=== PATIENT | female | born 1950 | race Caucasian/White ===

== ENCOUNTER → 2017-02-07 | Outpatient (CLI) | payer BC ==
[~2017-02-07] MED LIST: ASPI-232 PO; ATEN-173 PO; CITA20TA4 PO; CLR10 PO; LISI-725 PO; LORA-741 PO; LSX20 PO; MAGN400T6 PO; OMEP40CA PO; RANI150T3 PO; SIMV20TA5 PO; TAMO20TA5 PO
[2017-02-07 12:24] LABS: BASO % 0.2 %; BASO ABS # 0.01 K/uL (0-0.2); COMPLETE YES; EOS % 1.3 %; HEMATOCRIT 38.6 % (37-47); IG% 0.2 %; LYMPH % 35.1 %; LYMPH ABS # 1.91 K/uL (1.2-3.4); MEAN CORPUSCULAR HEMOGLOBIN 32.3 pg (25-34); MEAN CORPUSCULAR HGB CONC 32.6 g/dl (32-36); MEAN PLATELET VOLUME 10.5 fL (7.4-10.4); MONO % 8.8 %; NEUT % 54.4 %; PLATELET COUNT 153 K/uL (130-400); WHITE BLOOD COUNT 5.44 K/uL (4.8-10.8)
[2017-02-07 12:52] LABS: ALT/SGPT 30 U/L (12-78); BLOOD UREA NITROGEN 17 mg/dl (7-18); BUN/CREATININE RATIO 23.5 (10-20); CARBON DIOXIDE 26 mmol/L (21-32); CHLORIDE 108 mmol/L (98-107); CHOLESTEROL 224 mg/dl (0-200); CREATININE 0.72 mg/dl (0.60-1.20); GLUCOSE 100 mg/dl (70-99); POTASSIUM 4.1 mmol/L (3.5-5.1); SODIUM 141 mmol/L (136-145)
[2017-02-07 13:02] LABS: ALKALINE PHOSPHATASE 71 U/L (45-117); AST/SGOT 24 U/L (15-37); CHOLESTEROL/HDL RATIO 3.2; HDL CHOLESTEROL 70 mg/dl; LDL CHOLESTEROL CALCULATED 140 mg/dl; TRIGLYCERIDES 72 mg/dl (0-150); VERY LOW DENSITY LIPOPROT CALC 14 mg/dl
== END | disposition home or self-care (01) ==
LOC: C.LAB 10:46
DX: I10 Essential (primary) hypertension (principal); E78.00 Pure hypercholesterolemia, unspecified; R73.01 Impaired fasting glucose

== ENCOUNTER → 2017-05-16 | Outpatient (CLI) | payer BC, OTHER ==
[2017-05-16 14:40] VITALS: BP 146/69; PULSE 70; TEMP 37; O2SAT 96
--- NOTE | 2017-05-16 17:23 | Radiation Oncology Follow-Up ---
Radiation Oncology Follow-Up Date of Visit May 16, 2017. Reason For Visit Annual follow-up Radiation Completion Date 03/01/12 Diagnosis (1) Breast cancer Status: Resolved Onset Date: 05/19/2011 Histology Subtype: ductal Stage: ll (A) Permanent Comment: Abnormal left breast mammogram Status post biopsy revealing infiltrating ductal carcinoma Estrogen receptor positive, progesterone receptor negative, HER-2/karl negative Status post partial mastectomy and sentinel lymph node biopsy followed by axillary dissection Stage pT1c pN1 M0 Status post 5 cycles of Taxotere, Adriamycin and Cytoxan Status post completion of radiation therapy to left breast and chest wall with boost completed 03/01/2012 received 6120 cGy Last Edited By: Mary Jo Delgado on May 11, 2016 13:34 Interim History She has noticed no changes in her left breast. She's noted no masses or tenderness no change of the axilla. She's had no swelling of her arm. She is up-to-date on mammography. She has been having a pain in her right breast. This can be sharp at times. The pain is located in the lower inner portion of the breast. She has noted no masses. She has noted that wearing a bra increases the discomfort. She has had no trauma. She is recalled no injury to the area. She's noticed no redness or ecchymosis. She's noticed no nipple discharge. Allergies Coded Allergies: Adhesives (Verified Allergy, Severe, ETHICON SUTURES edema , skin split open drained, 07/28/15) Penicillins (Verified Allergy, Unknown, `, 07/28/15) Home Medications Scheduled Aspirin (Aspir-81), 1 TAB PO QAM Atenolol (Tenormin), 25 MG PO QAM Citalopram Hydrobromide (Citalopram Hydrobromide), 20 MG PO QAM Lisinopril (Zestril), 20 MG PO QAM Loratadine (Claritin), 10 MG PO QAM Lorazepam (Ativan), 0.5 MG PO PRN Magnesium Oxide (Mag-Ox), 400 MG PO QAM Omeprazole (Prilosec), 40 MG PO QAM Ranitidine Hcl (Zantac), 150 MG PO prn Simvastatin (Zocor), 20 MG PO QPM Scheduled PRN Furosemide (Lasix *), 20 MG PO DAILY PRN for SWELLING Review of Systems Gastrointestinal: Symptoms: WNL Oral: Symptoms: No Problems Respiratory: Symptoms: WNL Urinary: Symptoms: WNL Skin: Symptoms: No Problems Breast: Right Upper Arm Measurement: 42.2 Right Mid Arm Measurement: 29.5 Right Wrist Measurement: 18.4 Left Upper Arm Measurement: 42.0 Left Mid Arm Measurement: 31.1 Left Wrist Measurement: 19.6 Arm Dominence: Right Physical Exam Vital Signs Date Time Temp Pulse Resp B/P (MAP) Pulse Ox O2 Delivery O2 Flow Rate FiO2 05/16/17 14:40 37.0 70 16 146/69 96 Fatigue: None General Appearance: no apparent distress Eyes: normal inspection, EOMI ENT: normal ENT inspection, hearing grossly normal Neck: no adenopathy, thyroid normal (to) Respiratory/Chest: lungs clear, no respiratory distress, no accessory muscle use Breast: Breast examination reveals well-healed incisions of the left breast. There are no masses or tenderness and no axillary adenopathy. There are no nipple changes. Using the [place] score cosmesis she has a excellent outcome. The right breast showed no masses. There is no erythema or edema. There is no ecchymosis. She has no skin retractions or nipple changes. She does have tenderness in the right lower inner quadrant of the breast. Cardiovascular: regular rate, rhythm, no gallop, no murmur Extremities: no pedal edema Neurologic/Psychiatric: no motor/sensory deficits, alert, normal mood/affect Skin: warm/dry Additional Studies Patient: YAKOV MOSLEY [facility] Rec: [id number] Address1: [address] [place] [address] Address2: [facility] ID: [id number] Date: 1950 Sex: F Ref Phy: Att Phy: Andrea Hunt M.D. Kisha Phy: Chris Richardson M.D. Inter Phy: Anastasia Okeefe MD [facility] Zip: [place] [address] SC: [id number] Report #: [id number] Assistant Business Manager: REYES Diagnosis: ASYMPTOMATIC/HX BREAST CA Service Date: 08/10/16 MNE: [id number] Ordering Dr: Mary Jo Delgado PA-C CC: Mary Jo Delgado PA-C CONF: DICTATED BY: Anastasia Okeefe .MD MAMMOGRAPHY REPORT THIS REPORT HAS BEEN AMENDED. BILATERAL DIGITAL SCREENING MAMMOGRAM TOMOSYNTHESIS WITH CAD: 08/10/2016 CLINICAL HISTORY: Asymptomatic. Personal history of breast cancer. Comparison is made to exams dated: 08/09/2015 mammogram, 05/07/2014 mammogram, and 11/07/2013 mammogram - [facility]. FINDINGS: There are scattered areas of fibroglandular density in both breasts. Breast tomosynthesis, in addition to standard 2D mammography was performed. Current study was also evaluated with a Computer Aided Detection (CAD) system. There are stable post lumpectomy and radiations changes in the left breast. No suspicious mass, architectural distortion or cluster of microcalcifications is seen. There has been no significant interval change. IMPRESSION: ACR BI-RADS CATEGORY 2: BENIGN There is no mammographic evidence of malignancy. A 1 year screening mammogram is recommended. The patient will receive written notification of the results. Approximately 10% of breast cancers are not detected with mammography. A negative mammographic report should not delay biopsy if a clinically suggestive mass is present. Anastasia Okeefe MD mb/penrad:08/10/2016 13:03:02 Gym Supervisor: Martha ALLEN(Candace)(M)(BD), [facility] letter sent: Normal / BI-RADS Code: ACR BI-RADS Category 2: Benign AMENDMENT: 08/28/2016 Anastasia Okeefe MD Digital tomosynthesis was also performed and interpreted for this study. Amended BI-RADS: ACR BI-RADS Category 2: Benign Dictated by: Anastasia Okeefe MD Signed by: Anastasia Okeefe MD Assessment & Plan Plan: Due to the discomfort and tenderness on examination and ultrasound and diagnostic mammogram were scheduled. She'll continue regular follow-up with Dr. Richardson and Dr. Carmichael. I've asked her to take ibuprofen 200 mg 2 pills twice a day for one week. She is to refrain from caffeine. We asked to return to our office in one month for reevaluation. She'll be notified as to results of her testing. She may call if she has any questions or concerns in the interim. Total Time In Follow-Up I spent 25 minutes speaking to the patient performing examination. I spent 15 minutes reviewing information in completing this note. Copy To Chris Richardson M.D.; Segundo Carmichael M.D. Problem Qualifiers (1) Breast cancer: Breast location: upper outer quadrant of breast Estrogen receptor status: positive Patient sex: female Laterality: left Qualified Codes: C50.412 - Malignant neoplasm of upper-outer quadrant of left female breast; Z17.0 - Estrogen receptor positive status [ER+]
== END | disposition home or self-care (01) ==
LOC: C.ONC 14:37
PROVIDERS: ATTEND Physician Assistant Medical
DX: Z08 Encounter for follow-up examination after completed treatment for malignant neoplasm (principal); Z92.3 Personal history of irradiation; Z85.3 Personal history of malignant neoplasm of breast

== ENCOUNTER → 2017-05-30 | Outpatient (CLI) | payer BC ==
[~2017-05-30] MED LIST changes: -TAMO20TA5 PO
--- NOTE | 2017-05-30 12:44 | MAMMOGRAPHY REPORT ---
UNILATERAL RIGHT DIGITAL DIAGNOSTIC MAMMOGRAM TOMOSYNTHESIS WITH CAD AND TARGETED RIGHT ULTRASOUND: CLINICAL HISTORY: 66-year-old woman with a personal history of left breast cancer status post breast conservation therapy presents with one and half months of focal pain in the 4:00 to 5:00 right breast . No palpable mass, skin erythema or nipple discharge. TECHNIQUE: Right breast tomosynthesis in addition to standard 2D mammography was performed. Current s ziyad was also evaluated with a Computer Aided Detection (CAD) system. COMPARISON: Comparison is made to exams dated: 08/10/2016 mammogram, 08/09/2015 mammogram, 11/07/2013 ma mmogram, 05/02/2011 mammogram - [facility], 02/28/2008, and 03/01/2007. BREAST COMPOSITION: There are scattered areas of fibroglandular density in the right breast. FINDINGS: A square shaped pain marker overlies the 5:00 posterior right breast. The right breast par enchyma pattern is similar to prior mammograms. There are stable benign-appearing calcifications sca ttered in the breasts. No new suspicious mass, architectural distortion or cluster of suspicious ladi rocalcifications is seen. Targeted ultrasound was performed in the inferior right breast in the area of pain pointed out by the patient (4:00 to 5:00 right breast approximately 8 cm from the nipple near the inframammary fold. S onographically normal tissue is identified without a discrete solid or cystic mass. IMPRESSION: ACR BI-RADS CATEGORY 2: BENIGN, TARGETED ULTRASOUND ACR BI-RADS CATEGORY 2: BENIGN 1. There is no new suspicious mammographic or sonographic abnormality in the 4:00 through 6:00 axes of the right breast to explain the focal pain described by the patient. Therefore, clinical follow-u p is recommended. 2. Overall, stable mammographic appearance of the right breast, without evidence of malignancy. Rec ommend follow-up at time of next bilateral screening mammogram which is due in August 2017. Approximately 10% of breast cancers are not detected with mammography. A negative mammographic report should not delay biopsy if a clinically suggestive mass is present. Lizeth Hodgson M.D. ay/:05/30/2017 10:16:11 District Adviser: Catrina ALLEN(Candace)(Sadi), [facility] letter sent: Normal 1/2 BI-RADS Code: ACR BI-RADS Category 2: Benign Ultrasound BI-RADS: ACR BI-RADS Category 2: Benign
== END | disposition home or self-care (01) ==
LOC: C.MAMM 09:36
PROVIDERS: ATTEND Physician Assistant Medical
DX: N64.4 Mastodynia (principal); Z85.3 Personal history of malignant neoplasm of breast

== ENCOUNTER → 2017-06-13 | Outpatient (CLI) | payer BC ==
[2017-06-13 13:18] VITALS: BP 148/83; PULSE 100; TEMP 36.9; O2SAT 96
--- NOTE | 2017-06-13 13:43 | Radiation Oncology Follow-Up ---
Radiation Oncology Follow-Up Date of Visit Jun 13, 2017. Reason For Visit Recheck post annual visit due to breast discomfort Radiation Completion Date 03/01/12 Diagnosis (1) Breast cancer Status: Resolved Onset Date: 05/19/2011 Stage: ll (A) Permanent Comment: Abnormal left breast mammogram Status post biopsy revealing infiltrating ductal carcinoma Estrogen receptor positive, progesterone receptor negative, HER-2/karl negative Status post partial mastectomy and sentinel lymph node biopsy followed by axillary dissection Stage pT1c pN1 M0 Status post 5 cycles of Taxotere, Adriamycin and Cytoxan Status post completion of radiation therapy to left breast and chest wall with boost completed 03/01/2012 received 6120 cGy Last Edited By: Mary Jo Delgado on May 11, 2016 13:34 Interim History She is being seen in follow-up due to discomfort that was discussed at her last visit. She was seen on 05/16/2017. At that time she was having pain of her right breast in the lower inner quadrant. She had noted no masses. She was up- to-date on mammography. She had noticed no redness or ecchymosis. There were no nipple changes. There are no changes of the skin. On examination there was tenderness to palpation in the lower inner quadrant of the breast. The mammogram was ordered as well as an ultrasound for evaluation. There were no suspicious findings. Recommendation was to continue with regular follow-up mammography. This would be due in August 2017. She had been instructed to use ibuprofen 2 pills twice daily for one week. With the initiation of medication the discomfort steadily improved and resolved. She has been off the ibuprofen for 3 days and there is been no recurrence of pain. She feels that this may have occurred due to strain while cleaning. Allergies Coded Allergies: Adhesives (Verified Allergy, Severe, ETHICON SUTURES edema , skin split open drained, 07/28/15) Penicillins (Verified Allergy, Unknown, `, 07/28/15) Home Medications Scheduled Aspirin (Aspir-81), 1 TAB PO QAM Atenolol (Tenormin), 25 MG PO QAM Citalopram Hydrobromide (Citalopram Hydrobromide), 20 MG PO QAM Lisinopril (Zestril), 20 MG PO QAM Loratadine (Claritin), 10 MG PO QAM Lorazepam (Ativan), 0.5 MG PO PRN Magnesium Oxide (Mag-Ox), 400 MG PO QAM Omeprazole (Prilosec), 40 MG PO QAM Ranitidine Hcl (Zantac), 150 MG PO prn Simvastatin (Zocor), 20 MG PO QPM Scheduled PRN Furosemide (Lasix *), 20 MG PO DAILY PRN for SWELLING Review of Systems Gastrointestinal: Symptoms: WNL Oral: Symptoms: No Problems Respiratory: Symptoms: WNL Urinary: Symptoms: WNL Skin: Symptoms: No Problems Breast: Right Upper Arm Measurement: 43.5 Right Mid Arm Measurement: 31.0 Right Wrist Measurement: 19.0 Left Upper Arm Measurement: 43.5 Left Mid Arm Measurement: 32.5 Left Wrist Measurement: 20.0 Arm Dominence: Right Physical Exam Vital Signs Date Time Temp Pulse Resp B/P (MAP) Pulse Ox O2 Delivery O2 Flow Rate FiO2 06/13/17 13:18 36.9 100 12 148/83 96 Pain: Patient Pain Scale: 0 - 10 Initial Pain Intensity: 0.0 General Appearance: no apparent distress ENT: normal ENT inspection, hearing grossly normal Neck: no adenopathy, thyroid normal Breast: Breast examination reveals resolution of tenderness in the right breast in the lower inner quadrant. There are no masses and no change of the axilla. There are no overlying skin changes there is no erythema or ecchymosis. She has no skin retractions or nipple changes. Cardiovascular: regular rate, rhythm, no gallop, no JVD Extremities: no pedal edema Neurologic/Psychiatric: no motor/sensory deficits, alert, normal mood/affect Skin: warm/dry Additional Studies Patient: YAKOV MOSLEY [facility] Rec: [id number] Address1: [address] [place] [address] Address2: [facility] ID: [id number] Date: 1950 Sex: F Ref Phy: Chris Richardson M.D. Att Phy: Mary Jo Delgado PA-C Kisha Phy: Chris Richardson M.D. Inter Phy: Lizeth Hodgson MD [facility] Zip: [place] [address] SC: NilsonMAMM Report #: [id number] Financial Operations Consultant: NICCI Diagnosis: RIGHT BREAST PAIN Service Date: 05/30/17 MNE: [id number] Ordering Dr: Mary Jo Delgado PA-C CC: Mary Jo Delgado PA-C CONF: DICTATED BY: Lizeth Hodgson MD MAMMOGRAPHY REPORT UNILATERAL RIGHT DIGITAL DIAGNOSTIC MAMMOGRAM TOMOSYNTHESIS WITH CAD AND TARGETED RIGHT ULTRASOUND: 05/30/2017 CLINICAL HISTORY: 66-year-old woman with a personal history of left breast cancer status post breast conservation therapy presents with one and half months of focal pain in the 4:00 to 5:00 right breast. No palpable mass, skin erythema or nipple discharge. TECHNIQUE: Right breast tomosynthesis in addition to standard 2D mammography was performed. Current study was also evaluated with a Computer Aided Detection (CAD) system. COMPARISON: Comparison is made to exams dated: 08/10/2016 mammogram, 08/09/2015 mammogram, 11/07/2013 mammogram, 05/02/2011 mammogram - [facility], 02/28/2008, and 03/01/2007. BREAST COMPOSITION: There are scattered areas of fibroglandular density in the right breast. FINDINGS: A square shaped pain marker overlies the 5:00 posterior right breast. The right breast parenchyma pattern is similar to prior mammograms. There are stable benign-appearing calcifications scattered in the breasts. No new suspicious mass, architectural distortion or cluster of suspicious microcalcifications is seen. Targeted ultrasound was performed in the inferior right breast in the area of pain pointed out by the patient (4:00 to 5:00 right breast approximately 8 cm from the nipple near the inframammary fold. Sonographically normal tissue is identified without a discrete solid or cystic mass. IMPRESSION: ACR BI-RADS CATEGORY 2: BENIGN, TARGETED ULTRASOUND ACR BI-RADS CATEGORY 2: BENIGN 1. There is no new suspicious mammographic or sonographic abnormality in the 4: 00 through 6:00 axes of the right breast to explain the focal pain described by the patient. Therefore, clinical follow-up is recommended. 2. Overall, stable mammographic appearance of the right breast, without evidence of malignancy. Recommend follow-up at time of next bilateral screening mammogram which is due in August 2017. Approximately 10% of breast cancers are not detected with mammography. A negative mammographic report should not delay biopsy if a clinically suggestive mass is present. Lizeth Hodgson M.D. ay/:05/30/2017 10:16:11 Byproducts Supervisor: Catrina ALLEN (R)(Sadi), [facility] letter sent: Normal 1/2 BI-RADS Code: ACR BI-RADS Category 2: Benign Ultrasound BI-RADS: ACR BI-RADS Category 2: Benign Dictated by: Lizeth Hodgson MD Signed by: Lizeth Hodgson MD Assessment & Plan Plan: The mammogram and ultrasound were reviewed. There was no finding of cyst or malignancy. Her pain has resolved. She'll continue regular follow-up with her primary care physician. She has been discharged from Dr. Carmichael. A follow- up appointment with our office was not given. She be now continue her regular follow-up with Dr. Richardson. She'll continue her mammograms as scheduled. She 'll need yearly breast examination at the primary care physician's office. She may call our office if she has any questions or concerns. Total Time In Follow-Up I spent 15 minutes speaking to patient performing examination. I spent 15 minutes reviewing information in completing this note. Copy To Chris Richardson M.D. Problem Qualifiers (1) Breast cancer: Breast location: upper outer quadrant of breast Estrogen receptor status: positive Patient sex: female Laterality: left Qualified Codes: C50.412 - Malignant neoplasm of upper-outer quadrant of left female breast; Z17.0 - Estrogen receptor positive status [ER+]
== END | disposition home or self-care (01) ==
LOC: C.ONC 12:55
PROVIDERS: ATTEND Physician Assistant Medical
DX: Z08 Encounter for follow-up examination after completed treatment for malignant neoplasm (principal); Z92.3 Personal history of irradiation; Z85.3 Personal history of malignant neoplasm of breast

== ENCOUNTER → 2017-08-13 | Outpatient (CLI) | payer BC ==
--- NOTE | 2017-08-14 07:40 | MAMMOGRAPHY REPORT ---
BILATERAL DIGITAL SCREENING MAMMOGRAM TOMOSYNTHESIS WITH CAD: 08/13/2017 CLINICAL HISTORY: Routine screening. Patient has no complaints. TECHNIQUE: Breast tomosynthesis in addition to standard 2D mammography was performed. Current study was also evaluated with a Computer Aided Detection (CAD) system. COMPARISON: Comparison is made to exams dated: 08/10/2016 mammogram, 08/09/2015 mammogram, 05/07/2014 ma mmogram, 11/07/2013 mammogram - [facility], 02/28/2008, and 05/02/2011 mammogram - [facility]. BREAST COMPOSITION: There are scattered areas of fibroglandular density in both breasts. FINDINGS: There is asymmetry of the size of the breasts likely related to prior treatment of the left breast. There is expected architectural distortion and benign-appearing dystrophic calcification ne ar the surgical site in the 12:00 posterior breast. There is mild diffuse skin thickening which appe ars similar comparing to prior mammograms. There are stable benign-appearing microcalcifications mj aterally. No new suspicious mass, architectural distortion or cluster of microcalcifications is seen . IMPRESSION: ACR BI-RADS CATEGORY 1: NEGATIVE There is no mammographic evidence of malignancy. A 1 year screening mammogram is recommended. The pa tient will receive written notification of the results. Approximately 10% of breast cancers are not detected with mammography. A negative mammographic report should not delay biopsy if a clinically suggestive mass is present. Lizeth Hodgson M.D. ay/:08/13/2017 14:31:44 Newspaper Or Periodical Editor: Tram ALLEN(R)(Sadi), [facility] letter sent: Normal 1/2 BI-RADS Code: ACR BI-RADS Category 1: Negative
== END | disposition home or self-care (01) ==
LOC: C.MAMM 09:22
PROVIDERS: ATTEND Physician Assistant Medical
DX: Z12.31 Encounter for screening mammogram for malignant neoplasm of breast (principal)